=== PATIENT | female | born 1960 | race African-American/Black ===

== ENCOUNTER 2016-09-18 13:01 | Emergency (ER) | payer BC, OTHER ==
[~2016-09-18] VITALS: Ht 160 cm; Wt 74.8 kg
[~2016-09-18 13:01] MED LIST: IBUPROFEN 600600 M1 PO; NORCO 5-325 TA1 EACH PO; PRAVASTATIN SOD10 MG PO; SYNTHROID150 MCG PO
[2016-09-18] MEDS ORDERED: FLEXERIL PO (13:11)
[2016-09-18] MEDS ORDERED: OMEPRAZOLE 20 M20 M1 PO (13:11)
[2016-09-18] MEDS ORDERED: ATORVASTATIN CA40 MG PO (13:11)
[2016-09-18] MEDS ORDERED: CYCLOBENZAPRINE5 MG PO (15:12)
[2016-09-18] MEDS ORDERED: NAPROSYN500 MG PO (15:14)
[2016-09-18 15:52] VITALS: BP 125/88
== END 2016-09-18 15:53 | disposition home or self-care (01) ==
LOC: ER 13:01
DX: S16.1XXA Strain of muscle, fascia and tendon at neck level, initial encounter (principal); V49.50XA Passenger injured in collision with unspecified motor vehicles in traffic accident, initial encounter; Y93.89 Activity, other specified; Y92.488 Other paved roadways as the place of occurrence of the external cause; Y99.8 Other external cause status; E03.9 Hypothyroidism, unspecified; E78.5 Hyperlipidemia, unspecified; Z88.0 Allergy status to penicillin